=== PATIENT | male | born 1990 | race Caucasian/White ===

== ENCOUNTER 2017-10-27 16:11 | Emergency (ER) | payer OTHER ==
[2017-10-27] MEDS: FLUORESCEIN STRIP RIGHT EYE (17:27)
[2017-10-27] MEDS: OPHTHALMIC IRRIG SOLUTION 120 ML RIGHT EYE (17:27)
[2017-10-27] MEDS: TETRACAINE 0.5% 4 ML OPH RIGHT EYE (17:27)
[2017-10-27] MEDS: IBUPROFEN 600 MG TAB PO (17:53)
== END 2017-10-27 18:04 | disposition home or self-care (01) ==
LOC: FTE 16:11
DX: H57.11 Ocular pain, right eye (principal)
CPT/HCPCS: 99283; Z7502